=== PATIENT | male | born 1975 | race Caucasian/White ===

== ENCOUNTER 2018-05-13 12:50 | Emergency (ER) | payer BC, OTHER ==
[2018-05-13] MEDS ORDERED: DEXAMETHASONE 10 MG/ML VIAL PO STA (13:17)
--- NOTE | 2018-05-13 13:23 | ED Physician Documentation ---
PD HPI UPPER EXT INJURY - Stated complaint Stated Complaint: RT HAND INJURY - Chief complaint Chief Complaint: Ext Problem - History obtained from History obtained from: Patient - History of Present Illness Location: Right, Finger (thumb) Type of injury: Fall Where injury occurred: Work Timing - onset: Yesterday Timing - duration: Days (1) Timing - details: Abrupt onset, Still present Improved by: Rest, Immobilization Worsened by: Moving, Palpating Associated symptoms: Swelling. No: Weakness, Numbness, Tingling Contributing factors: No: Anticoagulated Similar symptoms before: Diagnosis (tendonitis) Recently seen: Not recently seen - Additonal information Additional information: 42 y/o male with a history of tendonitis in the shoulder has developed pain in the right thumb along the extensor pollicus that has been present for some time and tolerable. He had a fall yesterday at work and now has significant pain and a crunching noise when he moves his thumb. 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 Review of Systems Constitutional: denies: Fever Eyes: denies: Decreased vision Ears: denies: Ear pain Nose: denies: Rhinorrhea / runny nose, Congestion Throat: denies: Sore throat Respiratory: denies: Cough GI: denies: Vomiting PD PAST MEDICAL HISTORY - Past Medical History Past Medical History: No Musculoskeletal: None - Past Surgical History Past Surgical History: Yes - Present Medications Home Medications: Ambulatory Orders Medication Instructions Recorded Confirmed Sertraline [Zoloft] 25 mg PO DAILY 08/23/12 08/23/12 - Allergies Allergies/Adverse Reactions: Allergies Allergy/AdvReac Type Severity Reaction Status Date / Time No Known Drug Allergies Allergy Verified 08/23/12 10:40 - Social History Does the pt smoke?: No Smoking Status: Never smoker Does the pt drink ETOH?: Yes Does the pt have substance abuse?: No - Immunizations Immunizations are current?: No Immunizations: TDAP >10years/unknown PD ED PE NORMAL - General General: Alert and oriented X 3, No acute distress, Well developed/nourished - HEENT HEENT: Atraumatic, PERRL, EOMI - Respiratory Respiratory: No respiratory distress - Derm Derm: Normal color, Warm and dry, No rash - Extremities Extremities: No deformity, No edema, Other (There is tenderness and swelling to the proximal 1st metacarpal that is worse with movement and there is crepitance present. ) - Neuro Neuro: Alert and oriented X 3, bulk sausage casing tier off 2-12 intact, No motor deficit, No sensory deficit, Normal speech Eye Opening: Spontaneous Motor: Obeys Commands Verbal: Oriented GCS Score: 15 - Psych Psych: Normal mood, Normal affect Results - Vitals Vitals: Vital Signs - 24 hr 05/13/18 05/13/18 13:02 14:50 Temperature 36.1 C L 36.7 C Heart Rate 79 56 L Respiratory 18 16 Rate Blood Pressure 158/88 H 143/97 H O2 Saturation 99 99 Oxygen O2 Source Room air - Rads (name of study) right hand Radiology: Prelim report reviewed (Impression: No evidence of acute fracture or dislocation.), EMP read indepedently, See rad report Procedures - Splint (location) right hand Splint applied by: Tech Type of splint: Fiberglass, Thumb spica Other: Patient tolerated well, No complications, Neurovascular intact PD MEDICAL DECISION MAKING - ED course Complexity details: reviewed results, re-evaluated patient, considered differential, d/w patient ED course: 42-year-old male with pain along the extensor Pollicus appears to have de Q uervain's tenosynovitis. His recent fall appears to have exacerbated his symptoms and there is no evidence of fracture. This does appear to remain a work-related injury. Departure - Departure Disposition: 01 Home, Self Care Clinical Impression: De Quervain's tenosynovitis Condition: Stable Instructions: De Quervain Tenosynovitis Follow-Up: Nancy Yo ARNP [Primary Care Provider] - [facility] [Provider Group] Forms: Activity restrictions Discharge Date/Time: 05/13/18 14:51
--- NOTE | 2018-05-13 13:49 | XRAY Report ---
Reason: proximal thumb pain after fall. Procedure Date: 05/13/2018 Accession Number: [id number] / [id number] Procedure: XR - Hand 3 View RT CPT Code: FULL RESULT: EXAM: RIGHT HAND RADIOGRAPHY EXAM DATE: 05/13/2018 01:37 PM. CLINICAL HISTORY: Proximal thumb pain after fall. COMPARISON: None. TECHNIQUE: 3 views. FINDINGS: Bones: No fracture or focal bony lesion. Joints: No evidence of dislocation. Soft Tissues: No unexpected soft tissue findings. IMPRESSION: No evidence of fracture or dislocation. [facility]
[2018-05-13 14:51] VITALS: BP 143/97
== END 2018-05-13 14:51 | disposition home or self-care (01) ==
LOC: ED 12:50
DX: M65.4 Radial styloid tenosynovitis [de Quervain] (principal); Z91.81 History of falling
CPT/HCPCS: 1040M; 29125; 73130; 99283

== ENCOUNTER 2018-05-27 14:54 | Emergency (ER) | payer SELFPAY ==
--- NOTE | 2018-05-27 17:05 | CT Report ---
Reason: headache x 1 week Procedure Date: 05/27/2018 Accession Number: [id number] / [id number] Procedure: CT - Head W/O CPT Code: FULL RESULT: EXAM: CT HEAD WITHOUT IV CONTRAST EXAM DATE: 05/27/2018 04:40 PM. CLINICAL HISTORY: Headache for 1 week. COMPARISON: None. TECHNIQUE: Multiaxial CT images were obtained from the foramen magnum to the vertex. Reformats: Sagittal and coronal. IV contrast: None. In accordance with CT protocol optimization, one or more of the following dose reduction techniques were utilized for this exam: automated exposure control, adjustment of mA and/or KV based on patient size, or use of iterative reconstructive technique. FINDINGS: Parenchyma: No intraparenchymal hemorrhage. No evidence of mass, midline shift, or CT findings of infarction. Barber-white differentiation is distinct. Extraaxial Spaces: Normal for age. No subdural or epidural collections identified. Ventricles: Normal in size and position. Sinuses and Orbits: Mild scattered polypoid mucosal thickening is seen in the paranasal sinuses. Involvement of bilateral ethmoid air cells as well as left maxillary and sphenoid sinuses is seen. The visualized mastoid air cells are clear. The visualized orbits are unremarkable. Bones: No evidence of fracture or calvarial defect. Other: None. IMPRESSION: 1. Negative noncontrast CT scan of the head. No acute intracranial abnormality. 2. Mild scattered polypoid mucosal thickening is seen in the paranasal sinuses. [facility]
--- NOTE | 2018-05-27 17:18 | ED Physician Documentation ---
PD HPI HEADACHE - Stated complaint Stated Complaint: HEADACHE/BLURRED VISION - Chief complaint Chief Complaint: Neuro - History obtained from History obtained from: Patient, Family () - History of Present Illness Timing - onset: How many weeks ago (1) Timing - duration: Weeks (1) Timing - details: Waxing and waning Worst headache ever?: Worst headache ever? (No) Location: Left Quality: Throbbing Associated symptoms: Vision changes ("blurry") Worsened by: Moving (bending over), Other (coughing) Similar symptoms before: Has not had sx before Recently seen: Clinic (Sent here from clinic for head CT.) - Additional information Additional information: The patient is a 42-year-old male who presents with a left-sided headache that s tarted 1 week ago and has been waxing and waning since that time. He describes it as throbbing. It is worse with bending over, with cough, and with exercise. He reports occasional blurry vision with his headache. He denies fever, nausea or vomiting, numbness or weakness. He denies history of similar symptoms in the past. He does have a history of shingles affecting the left side of his scalp. He has not noticed any rash. Review of Systems Constitutional: denies: Fever Eyes: reports: Other (Slightly blurred vision.). denies: Photophobia Ears: denies: Ear pain Nose: reports: Congestion Throat: denies: Sore throat Cardiac: denies: Chest pain / pressure Respiratory: denies: Dyspnea, Cough GI: denies: Abdominal Pain, Nausea, Vomiting : denies: Dysuria Skin: denies: Rash Musculoskeletal: denies: Neck pain Neurologic: reports: Headache. denies: Focal weakness, Numbness, Altered mental status, Head injury PD PAST MEDICAL HISTORY - Past Medical History Cardiovascular: None Respiratory: None Neuro: None Endocrine/Autoimmune: None Musculoskeletal: None Derm: Herpes zoster - Past Surgical History Past Surgical History: Yes - Present Medications Home Medications: Ambulatory Orders Medication Instructions Recorded Confirmed Sertraline [Zoloft] 25 mg PO DAILY 08/23/12 08/23/12 Oxymetazoline HCl [Afrin] 15 ml NS BID #1 bottle 05/27/18 - Allergies Allergies/Adverse Reactions: Allergies Allergy/AdvReac Type Severity Reaction Status Date / Time No Known Drug Allergies Allergy Verified 05/27/18 15:35 - Social History Does the pt smoke?: No Smoking Status: Never smoker Does the pt drink ETOH?: Yes Does the pt have substance abuse?: No - Immunizations Immunizations are current?: No Immunizations: TDAP >10years/unknown PD ED PE NORMAL - Vitals Vital signs reviewed: Yes (Borderline systolic hypertension initially.) - General General: Alert and oriented X 3, Well developed/nourished - HEENT HEENT: Atraumatic, PERRL, EOMI, Ears normal, Pharynx benign, Other (Fundi with normal vasculature, without papilledema.) - Neck Neck: Supple, no meningeal sign, No adenopathy - Cardiac Cardiac: RRR, No murmur - Respiratory Respiratory: No respiratory distress, Clear bilaterally - Abdomen Abdomen: Soft, Non tender - Back Back: No CVA TTP - Derm Derm: No rash - Extremities Extremities: No edema, No calf tenderness / cord - Neuro Neuro: Alert and oriented X 3, No motor deficit, No sensory deficit, Normal speech Eye Opening: Spontaneous Motor: Obeys Commands Verbal: Oriented GCS Score: 15 Results - Vitals Vitals: Oxygen O2 Source Room air - Rads (name of study) Head CT Radiology: Prelim report reviewed, EMP read contemporaneously, See rad report (1) Negative noncontrast CT scan of the head. No acute intracranial abnormality. 2) Mild scattered polypoid mucosal thickening is seen in the paranasal sinuses.) PD MEDICAL DECISION MAKING - ED course Complexity details: reviewed results, re-evaluated patient, considered differential, d/w patient, d/w family ED course: The patient's headache is most likely due to sinusitis. Head CT reveals no acute intracranial abnormality, but does reveal paranasal sinus mucosal thickening. His physical exam is otherwise unremarkable. There is no clinical evidence to suggest intracranial hemorrhage, temporal arteritis, pseudotumor cerebri, meningitis, or shingles outbreak. I discussed with him and his the diagnosis, symptomatic treatment and outpatient follow-up, as well as potentially worrisome signs or symptoms that should prompt reevaluation in the emergency department. He is being discharged with prescription for Afrin nasal spray. The sinus infection is more likely due to a viral etiology than it is to a bacterial cause, and antibiotics are not clinically indicated at this time. Departure - Departure Disposition: 01 Home, Self Care Clinical Impression: Headache Qualifiers: Headache type: unspecified Headache chronicity pattern: unspecified pattern Intractability: not intractable Qualified Code(s): R51 - Headache Sinusitis Qualifiers: Sinusitis location: unspecified location Chronicity: acute Recurrence: non- recurrent Qualified Code(s): J01.90 - Acute sinusitis, unspecified Condition: Stable Instructions: ED Headache Sinus Follow-Up: Nancy Yo ARNP [Primary Care Provider] - Prescriptions: Oxymetazoline HCl [Afrin] 15 ml NS BID #1 bottle Comments: Use Afrin nasal spray twice daily. You can continue to use ibuprofen, up to 800 mg 3 times daily, if needed for headache. Follow-up with your primary physician within 1-2 weeks. Call to schedule an appointment. Return to the emergency department if you develop increasing headache, fever with shaking chills, persistent vomiting, or otherwise worsening times. Discharge Date/Time: 05/27/18 17:54
[2018-05-27 17:53] VITALS: BP 131/82
== END 2018-05-27 17:54 | disposition home or self-care (01) ==
LOC: ED 14:54
DX: J01.90 Acute sinusitis, unspecified (principal); R51 Headache
CPT/HCPCS: 70450; 90471; 99283

== ENCOUNTER 2018-06-03 18:04 | Outpatient (CLI) | payer OTHER ==
--- NOTE | 2018-06-05 20:35 | MRI Report ---
Reason: DEGENERATIVE JOINT DISEASE,CARPOMETACARPAL JOINT,R Procedure Date: 06/03/2018 Accession Number: [id number] / [id number] Procedure: MRI - Hand RT W/O CPT Code: FULL RESULT: EXAM: RIGHT HAND MRI WITHOUT CONTRAST EXAM DATE: 06/03/2018 07:15 PM. CLINICAL HISTORY: Degenerative joint disease, carpometacarpal joint, right. COMPARISON: HAND 3 VIEW RT 05/13/2018 1:29 PM. TECHNIQUE: Multiplanar, multisequence T1-weighted and fluid-sensitive sequences of the hand without contrast. Other: None. FINDINGS: Some of the images are degraded due to patient-related motion artifact. Bones and articular cartilage: Small subcortical cyst at the distal end of the scaphoid. Mild triscaphe joint osteoarthritis. Mild to moderate first carpometacarpal joint osteoarthritis. No acute fracture or bone lesions. Mild to moderate first metacarpophalangeal joint osteoarthritis. Ligaments: The visualized collateral ligaments are intact. Tendons: The flexor and extensor tendons are unremarkable. Musculature: No edema or fatty atrophy. Other: Small first metacarpophalangeal joint effusion. The subcutaneous tissues are unremarkable. IMPRESSION: 1. Mild triscaphe, mild to moderate first carpometacarpal, and mild to moderate first metacarpophalangeal joint osteoarthritis. Small first metacarpophalangeal joint effusion. [facility] MUSCULOSKELETAL RADIOLOGY SECTION
== END 2018-06-03 18:05 | disposition home or self-care (01) ==
LOC: DI 18:04
PROVIDERS: ATTEND Orthopaedic Surgery Sports Medicine
DX: M18.11 Unilateral primary osteoarthritis of first carpometacarpal joint, right hand (principal); Y99.0 Civilian activity done for income or pay

== ENCOUNTER 2020-08-01 08:49 | Emergency (ER) | payer OTHER, MEDICAID ==
[2020-08-01] MEDS ORDERED: ROPIVACAINE 0.5% PF 20 ML AMPULE SUBQ STA (09:15)
[2020-08-01] MEDS ORDERED: KETOROLAC 60 MG/2 ML VIAL IM STA (09:15)
--- NOTE | 2020-08-01 09:16 | ED Physician Documentation ---
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 2 days ago he had a functional evaluation for L&I and since then has had severe increase in pain at the right CMC. Review of Systems Constitutional: reports: Reviewed and negative Eyes: reports: Reviewed and negative Ears: reports: Reviewed and negative Nose: reports: Reviewed and negative Throat: reports: Reviewed and negative PD PAST MEDICAL HISTORY - Past Medical History Cardiovascular: None Respiratory: None Neuro: None Endocrine/Autoimmune: None Musculoskeletal: None Derm: Herpes zoster - Past Surgical History Past Surgical History: Yes - Present Medications Home Medications: Ambulatory Orders Medication Instructions Recorded Confirmed Sertraline [Zoloft] 25 mg PO DAILY 08/23/12 08/01/20 Meloxicam [Mobic] 1 tablet PO DAILY PRN 08/01/20 08/01/20 - Allergies Allergies/Adverse Reactions: Allergies Allergy/AdvReac Type Severity Reaction Status Date / Time No Known Drug Allergies Allergy Verified 08/01/20 09:04 - Social History Does the pt smoke?: No Smoking Status: Never smoker Does the pt drink ETOH?: Yes Does the pt have substance abuse?: No - Immunizations Immunizations are current?: No Immunizations: TDAP >10years/unknown PD ED PE NORMAL - Vitals Vital signs reviewed: Yes - General General: Alert and oriented X 3, No acute distress - Extremities Extremities: Other (There is tenderness of the right first CMC with limited range of motion but no warmth or redness.) - Neuro Neuro: Alert and oriented X 3, Normal speech Results - Vitals Vitals: Vital Signs - 24 hr 08/01/20 09:01 Temperature 36.7 C Heart Rate 116 H Respiratory 16 Rate Blood Pressure 170/97 H O2 Saturation 99 Oxygen O2 Source Room air Procedures - General procedure General procedure: Radial nerve block of the right wrist was done in standard fashion infiltrating along the styloid process with about 3 mL of 0.5% ropivacaine for pain relief. Departure - Departure Disposition: 01 Home, Self Care Clinical Impression: Arthritis of wrist, right Condition: Good Record reviewed to determine appropriate education?: Yes Comments: Continue meloxicam as needed. Return for new or worsening symptoms. Follow-up with your hand surgeon as scheduled.
[2020-08-01 09:48] VITALS: BP 168/89
== END 2020-08-01 09:48 | disposition home or self-care (01) ==
LOC: ED 08:49
DX: M19.031 Primary osteoarthritis, right wrist (principal); M19.041 Primary osteoarthritis, right hand
CPT/HCPCS: 64450